=== PATIENT | female | born 1995 | race Caucasian/White ===

== ENCOUNTER 2017-01-18 00:47 | Emergency (ER) | payer MEDICAID ==
--- NOTE | ~2017-01-18 | ER ---
PATIENT'S NAME: ALEX ROGERS [facility] AGE: 21 Y [address] ROOM: [place] [address] LOCATION: [facility] ADMIT DATE: 01/18/2017 ER/Outpatient Report DISCHARGE DATE: 01/18/2017 FAMILY PHYSICIAN: Physician, Unknown ATTENDING PHYSICIAN: Jose A Tirado Admission date and time are documented on the medical record. I saw the patient at 0100 hours. CHIEF COMPLAINT: Midupper abdominal pain. HISTORY OF PRESENT ILLNESS: This patient is a 21-year-old female who is brought to the emergency room by paramedics via ambulance with 30 minute history of epigastric pain. She had some nausea without vomiting. She had some diarrhea and had some chills. No documented fever. She has some midback pain, but has chronic back pain. No loss of consciousness. No headache. No eyes, ears, nose, throat, or neck pain. No recent colds, coughs, flus, fever, chills, or sweats. No lightheadedness, dizziness, syncope, or near syncope. No chest pain or shortness of breath. No joint or muscle swelling, redness, or pain. No skin eruptions or rash. No history of endocrine problems. Does have a history of depression, anxiety, and mood swings. No neuro or endocrine troubles. HOME MEDICATIONS: See attached medication list. ALLERGIES: PENICILLIN. SOCIAL HISTORY: Nonsmoker, nondrinker. SIGNIFICANT PAST MEDICAL HISTORY: Anxiety, depression, mood swings, and recent chlamydia infection. OPERATIONS: None. REVIEW OF SYSTEMS: All systems reviewed by me are negative with the exception of those discussed in the history of present illness. PHYSICAL EXAMINATION: VITAL SIGNS: Pulse 90, blood pressure 140/71, and O2 sat on room air is 99%. PATIENT'S NAME: ALEX ROGERS [facility] AGE: 21 Y [address] ROOM: [place] [address] LOCATION: [facility] ADMIT DATE: 01/18/2017 ER/Outpatient Report DISCHARGE DATE: 01/18/2017 FAMILY PHYSICIAN: Physician, Unknown ATTENDING PHYSICIAN: Jose A Tirado HEAD: Normocephalic. EYES, EARS, NOSE, THROAT: Clear. Mucous membranes moist. NECK: No nuchal rigidity. No thyromegaly or cervical adenopathy. LUNGS: Clear. HEART: Regular. ABDOMEN: Soft. No tenderness to palpation. No distention. No true guarding or rigidity. No rebound tenderness. Active bowel tones. No palpable masses. No organomegaly. No CVA tenderness. EXTREMITIES: Intact. NEUROVASCULAR: Intact. SKIN: Clear. No skin eruptions or rash. LABORATORY DATA: H. pylori was negative. White count 6900, 54 segs, 38 lymphs, 7 monos, hemoglobin is 11.1 with hematocrit 34.8, and platelet count is 284,000. Urine showed 2-5 whites, negative reds, 5-10 epithelial cells, negative bacteria, 2+ amorphous material per high-powered field, negative nitrites. CMS was normal except for an elevated glucose 102, low calcium of 8.2, amylase and lipase were normal. Beta hCG was normal less than 1.0. IMPRESSION: Epigastric abdominal pain. No pain elicited here in the emergency department. No other abnormality was found on physical exam. PLAN: The patient dismissed home. Use [id number] antacids as needed. Follow up with personal physician as needed. MD FELIPA GONSALEZ/modl /[id number] d: 01/18/17 0526 t: 01/18/17 1809, OUTPATIENT REPORT
[2017-01-18 01:12] LABS: BASOPHIL % 0.1 %; HEMATOCRIT 34.8 % (33.0-46.0); HEMOGLOBIN 11.1 g/dL (11.0-15.0); IMMATURE GRANULOCYTE % 0.3 %; LYMPHOCYTE # 2.6 K/uL (0.8-4.0); LYMPHOCYTE % 38.3 %; MCH 24.7 pg (27.0-34.0); MCHC 31.9 gm/dL (32.0-36.5); MCV 77.5 fl (83.0-98.0); MONOCYTE # 0.5 K/uL (0.0-1.0); MONOCYTE % 7.1 %; MPV 10.1 fl (9.4-12.4); NEUTROPHIL # (ANC) 3.7 K/uL (1.8-7.8); NEUTROPHIL % 54.2 %; NRBC % 0 /100WBC (0-0.00); PLATELET COUNT 284 K/uL (150-450); RBC 4.49 M/uL (3.50-5.00); RDW-CV 14.1 % (11.9-14.6); WBC 6.9 K/uL (4.0-11.0)
[2017-01-18 01:19] LABS: BILIRUBIN URINE NEGATIVE (NEGATIVE); BLOOD URINE NEGATIVE /UL (NEGATIVE); COLOR URINE YELLOW (YELLOW); GLUCOSE URINE NEGATIVE (NEGATIVE); KETONE URINE NEGATIVE (NEGATIVE); LEUKOCYTES URINE 25 /UL (NEGATIVE); NITRITE URINE NEGATIVE (NEGATIVE); PROTEIN URINE NEGATIVE (NEGATIVE); TURBIDITY URINE 1+ (CLEAR); UROBILINOGEN URINE NORMAL (NORMAL)
[2017-01-18 01:32] LABS: ALBUMIN 3.4 gm/dL (3.5-5.0); ALK PHOS 102 IU/L (33-138); ALT 18 IU/L (12-78); ANION GAP 10.9 (10.0-19.0); AST 15 IU/L (10-40); BLOOD UREA NITROGEN 11 mg/dL (6-24); CALCIUM 8.2 mg/dL (8.5-10.5); CHLORIDE 110 mMol/L (96-110); CO2 24 mMol/L (22-32); CREATININE 0.7 mg/dL (0.5-1.1); ESTIMATED GFR (MDRD EQUATION) > 60; POTASSIUM 3.9 mMol/L (3.7-5.1); SODIUM 141 mMol/L (135-145); TOTAL BILIRUBIN 0.2 mg/dL (0.0-1.5); TOTAL PROTEIN 6.7 g/dL (6.0-8.4)
[2017-01-18 01:32] LABS: AMORPHOUS URINE 2+ (NEGATIVE); BACTERIA URINE NEGATIVE (NEGATIVE); RBC URINE NEGATIVE #/HPF (NEGATIVE)
== END 2017-01-18 01:46 | disposition disaster alternative care site (69) ==
LOC: GMED 00:47
PROVIDERS: Emergency Medicine
DX: R10.13 Epigastric pain (principal); F41.9 Anxiety disorder, unspecified; F32.9 Major depressive disorder, single episode, unspecified; Z79.899 Other long term (current) drug therapy; Z88.0 Allergy status to penicillin; Z88.1 Allergy status to other antibiotic agents

== ENCOUNTER → 2017-01-18 | Outpatient (CLI) | payer MEDICAID | END | disposition disaster alternative care site (69) | LOC: GAMB 00:38 | DX: R10.9 Unspecified abdominal pain (principal); F32.9 Major depressive disorder, single episode, unspecified; Z79.899 Other long term (current) drug therapy; Z88.1 Allergy status to other antibiotic agents | CPT/HCPCS: A0425; A0429 ==

== ENCOUNTER → 2017-05-02 | Outpatient (CLI) | payer MEDICAID | END | disposition disaster alternative care site (69) | LOC: GAMB 12:11 | DX: O99.89 Other specified diseases and conditions complicating pregnancy, childbirth and the puerperium (principal); F99 Mental disorder, not otherwise specified; F41.0 Panic disorder [episodic paroxysmal anxiety]; R06.02 Shortness of breath; Z59.0 Homelessness | CPT/HCPCS: A0425; A0429 ==

== ENCOUNTER 2017-05-03 23:38 | Emergency (ER) | payer MEDICAID ==
--- NOTE | ~2017-05-03 | ER ---
[facility] 22 Y [address] ROOM: [place] [address] LOCATION: [facility] ADMIT DATE: 05/03/2017 ER/Outpatient Report DISCHARGE DATE: 05/04/2017 FAMILY PHYSICIAN: Physician, Unknown ATTENDING PHYSICIAN: Jose A Villela Time of Arrival: Admission date and time documented in medical record. Time of Evaluation: I saw the patient at 2350 hours. CHIEF COMPLAINT: Nausea, vomiting, generalized abdominal pain, lightheadedness, dizziness. HISTORY OF PRESENT ILLNESS: The patient is a 22-year-old female who presents with off and on symptoms over the past month being lightheaded, dizzy, nausea, vomiting, generalized abdominal pain. The patient is 21 weeks gestation with her present . She is a 2, para 0-1-0. Estimated date of confinement is 09/14/2017. Was diagnosed yesterday at [facility] with a urinary tract infection and started on Macrodantin. She is not having any urinary symptomatology at the present time. Baby has been active. No vaginal bleeding or discharge. HOME MEDICATIONS: See attached medication list. ALLERGIES: PENICILLIN. SOCIAL HISTORY: Nonsmoker, nondrinker. SIGNIFICANT PAST MEDICAL HISTORY: Negative. OPERATIONS: None. REVIEW OF SYSTEMS: All systems reviewed by me are negative with the exception of those discussed in the history of present illness. PHYSICAL EXAMINATION: VITAL SIGNS: Temperature 97.4 tympanic, pulse 94, respirations 16, blood pressure 138/59, O2 saturation on room air was 98%. heart tones 160. HEAD: Normocephalic. [facility] 22 Y [address] ROOM: [place] [address] LOCATION: [facility] ADMIT DATE: 05/03/2017 ER/Outpatient Report DISCHARGE DATE: 05/04/2017 FAMILY PHYSICIAN: Physician, Unknown ATTENDING PHYSICIAN: Jose A [place] EYES, EARS, NOSE, THROAT: Clear. Mucous membranes moist. NECK: Negative. SPINE: Negative. LUNGS: Clear. HEART: Regular. Pulses palpable. ABDOMEN: Soft. Some generalized tenderness. Gravid. Fundus is at the umbilicus. No true guarding or rigidity. No rebound tenderness. No other organomegaly are palpable or masses palpable other than her uterus. No CVA tenderness. EXTREMITIES: Intact. NEUROVASCULAR: Intact. SKIN: Clear. No skin eruptions or rash. LABORATORY DATA AND X-RAYS: Urine shows 10 to 20 whites, 0 to 2 reds, 10 to 20 epithelial cells, moderate bacteria per high-powered field. Negative nitrites on dipstick. White count is 6100, 65 segs, 29 lymphs, 6 monos. Hemoglobin is 10.6, hematocrit 31.9, platelet count is 202,000. CMS was normal except for a low glucose of 67 and low calcium of 8.2. CRP was less than 0.29. IMPRESSION: Intrauterine at 21 weeks gestation with generalized abdominal discomfort, some intermittent nausea vomiting. Etiology uncertain but most likely related to her . PLAN: The patient was dismissed home. Observation. Activity as tolerated. Continue present home medications and care. Good fluid intake. Balanced diet. Tylenol 2 every 4 to 6 hours as needed for pain. Finish out the antibiotics. Follow up with personal physician as scheduled or as needed. JOSE A VILLELA MD SDS/modl /[id number] d: 05/04/170 t: 05/04/17 1814, OUTPATIENT REPORT
[2017-05-04 00:05] LABS: BILIRUBIN URINE NEGATIVE (NEGATIVE); BLOOD URINE 10 /UL (NEGATIVE); COLOR URINE YELLOW (YELLOW); GLUCOSE URINE NEGATIVE (NEGATIVE); KETONE URINE NEGATIVE (NEGATIVE); LEUKOCYTES URINE 100 /UL (NEGATIVE); NITRITE URINE NEGATIVE (NEGATIVE); PH URINE 6.5 (4.0-8.0); PROTEIN URINE 15 mg/dL (NEGATIVE); TURBIDITY URINE 1+ (CLEAR); UROBILINOGEN URINE 1 mg/dL (NORMAL)
[2017-05-04 00:14] LABS: BACTERIA URINE MODERATE (NEGATIVE)
[2017-05-04 00:26] LABS: HEMATOCRIT 31.9 % (33.0-46.0); HEMOGLOBIN 10.6 g/dL (11.0-15.0); IMMATURE GRANULOCYTE % 0.3 %; LYMPHOCYTE # 1.7 K/uL (0.8-4.0); LYMPHOCYTE % 28.5 %; MCH 26.3 pg (27.0-34.0); MCHC 33.2 gm/dL (32.0-36.5); MCV 79.2 fl (83.0-98.0); MONOCYTE # 0.4 K/uL (0.0-1.0); MONOCYTE % 5.8 %; MPV 10.5 fl (9.4-12.4); NEUTROPHIL % 65.4 %; NRBC % 0 /100WBC (0-0.00); PLATELET COUNT 202 K/uL (150-450); RBC 4.03 M/uL (3.50-5.00); RDW-CV 14.8 % (11.9-14.6); WBC 6.1 K/uL (4.0-11.0)
[2017-05-04 00:35] LABS: RBC URINE 0-2 #/HPF (NEGATIVE)
[2017-05-04 00:42] LABS: ALK PHOS 61 IU/L (33-138); ALT 14 IU/L (12-78); ANION GAP 11.2 (10.0-19.0); AST 15 IU/L (10-40); BLOOD UREA NITROGEN 10 mg/dL (6-24); CALCIUM 8.2 mg/dL (8.5-10.5); CHLORIDE 109 mMol/L (96-110); CO2 25 mMol/L (22-32); CREATININE 0.6 mg/dL (0.5-1.1); POTASSIUM 4.2 mMol/L (3.7-5.1); SODIUM 141 mMol/L (135-145); TOTAL BILIRUBIN 0.3 mg/dL (0.0-1.5); TOTAL PROTEIN 6.5 g/dL (6.0-8.4)
== END 2017-05-04 00:55 | disposition disaster alternative care site (69) ==
LOC: GMED 23:38
PROVIDERS: Emergency Medicine
DX: O99.89 Other specified diseases and conditions complicating pregnancy, childbirth and the puerperium (principal); O21.9 Vomiting of pregnancy, unspecified; R10.84 Generalized abdominal pain; R11.0 Nausea; R42 Dizziness and giddiness; Z3A.21 21 weeks gestation of pregnancy; Z88.0 Allergy status to penicillin; Z88.1 Allergy status to other antibiotic agents; Z79.2 Long term (current) use of antibiotics; Z79.899 Other long term (current) drug therapy

== ENCOUNTER → 2017-05-03 | Outpatient (CLI) | payer MEDICAID | END | disposition disaster alternative care site (69) | LOC: GAMB 12:11 | DX: O99.342 Other mental disorders complicating pregnancy, second trimester (principal); F99 Mental disorder, not otherwise specified; R06.02 Shortness of breath; R06.9 Unspecified abnormalities of breathing; Z59.0 Homelessness ==